=== PATIENT | female | born 1945 | race Asian ===

== ENCOUNTER 2018-12-31 15:54 | Emergency (ER) | payer MEDICARE ==
[~2018-12-31] VITALS: Ht 154.9 cm; Wt 39.9 kg
[2018-12-31 15:56] VITALS: BP_SYST 150
--- NOTE | 2018-12-31 15:56 | NUR ---
Note emil in EDM - 12/31/18 at 1610 by [email or web address] Arrived via ALS ambulance after presenting to [facility] with compliant of cough and being found to be in Afib with RVR. Patient has a distant Hx of Afib with RVR in 2005. Placed in room 1. Placed on satellite project site monitor, blood pressure machine and pulse oximeter. To gown for exam. Side rails up. Report given to Brian BURDEN.
--- NOTE | 2018-12-31 15:56 | NUR ---
Arrived via ALS ambulance after presenting to [facility] with compliant of cough and being found to be in Afib with RVR. Patient has a distant Hx of Afib with RVR in 2005. Placed in room 1. Placed on type soldering machine tender, blood pressure machine and pulse oximeter. To gown for exam. Side rails up. Report given to Brian BURDEN.
--- NOTE | 2018-12-31 15:57 | NUR ---
Patient is awake, alert, and oriented x4. She came in from [facility] via ALS for rapid PENG. Patient reports a history of AFIB in 2004, but has not had it since, breast cancer with right masectomy, patient denies pain at this time.
[2018-12-31] MEDS ORDERED: NACL 0.9% 500 ML IV ONE (16:00)
[2018-12-31] MEDS ORDERED: DILTIAZEM HCL 180 MG CAP.SR.24H PO ONE (16:30)
[2018-12-31] MEDS ORDERED: DILTIAZEM HCL 25 MG/5 ML VIAL IVP ONE ×2 (16:30→17:15)
[2018-12-31 16:35] LABS: ANION GAP 12 (5-15); CALCIUM 8.8 mg/dL (8.4-11.0); CHLORIDE 102 mmol/L (98-107); CREATININE 0.76 mg/dL (0.55-1.30); GLUCOSE 104 mg/dL (70-99); POTASSIUM 4.2 mmol/L (3.5-5.1); SODIUM SERUM 137 mmol/L (136-145); UREA NITROGEN, BLOOD 20 mg/dL (8-21)
[2018-12-31 16:44] LABS: ALANINE AMINOTRANSFERASE 64 U/L (12-78); ALBUMIN 3.5 g/dL (3.4-4.8); ASPARTATE AMINOTRANSFERASE 70 U/L (10-37); TOTAL BILIRUBIN 0.6 mg/dL (0.0-1.0)
[2018-12-31 16:45] LABS: HEMATOCRIT 42.4 % (36-48); HEMOGLOBIN 14.2 g/dL (12.0-16.0); MEAN CORPUSCULAR HEMOGLOBIN 29 pg (27-31); MEAN CORPUSCULAR VOLUME 88 fL (79.0-98.0); RED BLOOD CELL COUNT(AUTO) 4.83 MIL/uL (4.2-6.2); WHITE BLOOD COUNT (AUTO) 3.6 K/uL (4.8-10.8)
[2018-12-31 16:46] LABS: MEAN CORPUSCULAR HGB CONC 34 % (32-36); PLATELET COUNT (AUTO) 125 K/uL (130-430); RED CELL DISTRIBUTION WIDTH 13.9 % (9.0-15.0)
--- NOTE | 2018-12-31 17:43 | NUR ---
10 mg Diltiazem IVP administered. Pt tolerated well. No adverse reactions noted. Lab at bedside for blood draw for second troponin level.
[2018-12-31 18:19] LABS: BAND % (MANUAL) 12 % (0-6); BASOPHILS % (MANUAL) 0 % (0-2); EOSINOPHILS % (MANUAL) 0 % (0-7); LYMPHOCYTES % (MANUAL) 21 % (20-46); MONOCYTES % (MANUAL) 12 % (0-11)
[2018-12-31] MEDS ORDERED: ASPIRIN 81 MG TAB.CHEW PO ONE (18:45)
[2018-12-31] MEDS ORDERED: DILTIAZEM HCL 120 MG CAP.SR.24H PO ONE (19:00)
--- NOTE | 2018-12-31 19:06 | NUR ---
Report given to JENISE Khalil for continuation of care.
[2018-12-31 19:07] LABS: INR 0.9 (0.8-1.2); PROTHROMBIN TIME 9.4 SECS (9.5-12.5)
--- NOTE | 2018-12-31 19:17 | NUR ---
1916 - Received report from JENISE Torres. Pt found resting comfortably in bed, no distress, resp even and unlabored. VSS, A&OX4. Pt's HR significantly improved from arrival, per JENISE Torres. Awaiting [facility] transport. Will continue to monitor.
[2018-12-31] MEDS ORDERED: DILTIAZEM HCL 60 MG TABLET ONE (19:19)
[2018-12-31] MEDS ORDERED: ENOXAPARIN SODIUM 40 MG/0.4 ML SYRINGE SUBCUT ONE (19:30)
--- NOTE | 2018-12-31 20:37 | NUR ---
2036 - Cont to await transfer to [place]. Pt resting in bed, no distress, A&OX4. Pt denies CP, sob, weakness, dizziness or any other complaints. Will cont to monitor. Vss.
--- NOTE | 2018-12-31 23:11 | NUR ---
2311 - Pt cont to rest comfortably in gurney, no distress, ambulated to bathroom w/ steady gait and w/o assistance. Vss, awaiting [facility] acceptance.
--- NOTE | 2018-12-31 23:55 | NUR ---
0631 - Report given Bc RN at [facility]. All questions answered, IV line reviewed. Bc informed that transport should be here at 0012
--- NOTE | 2018-12-31 23:59 | NUR ---
2359 - Patient to be transferred to [facility]. Is being transferred due to higher level of care. Receiving facility has accepting physician and available space. ER physician has signed transfer form. Patient or responsible libertarian has agreed to transfer and signed form. Patient belongings inventoried and will be sent with patient. Copy of nursing notes, lab reports, EKG, Physicians Orders and X-rays to be sent with patient. Report called to Bc at receiving facility. Receiving physician is Vika. [facility] has been called for transfer, and at bedside.
[2019-01-01] VITALS: BP_SYST 113
== END 2019-01-01 | disposition short-term general hospital (02) ==
LOC: SED 15:54
DX: I48.91 Unspecified atrial fibrillation (principal); I10 Essential (primary) hypertension; Z85.3 Personal history of malignant neoplasm of breast; Z85.118 Personal history of other malignant neoplasm of bronchus and lung
CPT/HCPCS: 36415; 71045; 80053; 84484; 85007; 85027; 85379; 85610; 85730; 93005; 96372; 96374; 96376; 99285; J1650; J3490; J7030